=== PATIENT | female | born 1965 | race Caucasian/White ===

== ENCOUNTER → 2022-08-07 | Outpatient (CLI) | payer OTHER ==
--- NOTE | 2022-08-07 10:58 | XR ---
EXAMINATION TYPE: XR tibia fibula LT DATE OF EXAM: 08/07/2022 COMPARISON: None HISTORY: Hit metal cart, pain and swelling TECHNIQUE: 2 view left tibia and fibula FINDINGS: There is subtle soft tissue swelling along the anterior tibia mid shaft region. No radiopaque foreign bodies are evident. No acute fracture or dislocation is evident. Joint spaces a ppear preserved. IMPRESSION: 1. Mild soft tissue swelling anterior mid jenkins
== END | disposition home or self-care (01) ==
LOC: RADXRMAIN 10:21
PROVIDERS: ATTEND Emergency Medicine
DX: S80.12XA Contusion of left lower leg, initial encounter (principal); M79.89 Other specified soft tissue disorders

== ENCOUNTER → 2022-08-17 | Outpatient (CLI) | payer OTHER ==
--- NOTE | 2022-08-17 15:05 | XR ---
EXAMINATION TYPE: XR tibia fibula LT DATE OF EXAM: 08/17/2022 2:58 PM INDICATION: Patient age:Female; 57 years old; Reason for study: S80.12XD; [facility]. COMPARISON: Left tibia/fibular radiographs 08/07/2022 TECHNIQUE: The left tibia/fibula was examined in AP and lateral projections. FINDINGS: No evidence of any acute osseous pathology joint dislocation. Mildly decreased soft tissue swelling in the anterior tibial mid shaft region. No osseous erosions or radiopaque foreign bodies. IMPRESSION: 1. No evidence of acute fracture. 2. Mildly decreased soft tissue swelling anterior tibial mid shaft region.
== END | disposition home or self-care (01) ==
LOC: RADXRMAIN 14:42
PROVIDERS: ATTEND Emergency Medicine
DX: M79.89 Other specified soft tissue disorders (principal); S80.12XD Contusion of left lower leg, subsequent encounter; X58.XXXD Exposure to other specified factors, subsequent encounter

== ENCOUNTER → 2024-04-23 | Outpatient (CLI) | payer BC ==
--- NOTE | 2024-04-23 15:06 | MM ---
Reason for Exam: Screening (asymptomatic). Last mammogram was performed 9 year(s) and 4 month(s) ago. Patient History: Menarche at age 12. First Full-Term at age 23. Postmenopausal. Risk Values: Kirstin 5 year model risk: 1.2%. NCI Lifetime model risk: 6.9%. Prior Study Comparison: 01/08/2015 Bilateral Screening Mammogram, [facility]. Tissue Density: The breasts are heterogeneously dense, which may obscure small masses. Findings: Analyzed By CAD. There is no suspicious group of microcalcifications or new suspicious mass in either breast. Overall Assessment: Benign, BI-RAD 2 Management: Screening Mammogram of both breasts in 1 year. . Patient should continue monthly self-breast exams. A clinical breast exam by your physician is recommended on an annual basis. This exam should not preclude additional follow-up of suspicious palpable abnormalities. Note on Kirstin scores and lifetime risk: 1. A Kirstin score greater than 3% is considered moderate risk. If this is the case, consider specialist referral to assess eligibility for a risk reducing agent. 2. If overall lifetime risk for the development of breast cancer is 20% or higher, the patient may qualify for future screening with alternating mammogram and breast MRI. [facility], , 04/23/2024 3:03 PM. Electronically signed and approved by: Ritesh Meredith M.D. Radiologis
== END | disposition home or self-care (01) ==
LOC: RADMAMWWP 13:40
PROVIDERS: ATTEND Family Medicine
DX: Z12.31 Encounter for screening mammogram for malignant neoplasm of breast (principal); R92.333 Mammographic heterogeneous density, bilateral breasts; Z78.0 Asymptomatic menopausal state
CPT/HCPCS: 77063; 77067